=== PATIENT | female | born 1990 | race Caucasian/White ===

== ENCOUNTER 2017-09-03 12:36 | Emergency (ER) | payer OTHER ==
[~2017-09-03] VITALS: Ht 162.6 cm; Wt 75.8 kg
[~2017-09-03 12:36] MED LIST: ENDOCET 5-3251 EACH PO; FLEXERIL5 MG PO; FLONASE16 G1 BOTH NARES; IBUPROFEN800 MG PO; KEFLEX500 MG PO; LYRICA200 MG PO; MACROBID100 MG PO; MOTRIN800 MG PO; MUCUS ER600 MG PO; Motrin PO; NAPROSYN500 MG PO; NAPROXEN SODIU550 MG PO; NOHOMEMEDS; NORCO 5/3251 TABLET PO; Natalcare Rx,Pramile PO; PROMETHAZINE HC25 M1 PO; PROPRANOLOL HCL60 MG PO; Percocet 5/325,Endoc PO; TESSALON PERLE100 MG PO; TYLENOL EXTRA500 MG PO
[2017-09-03 13:44] LABS: APPEARANCE CLEAR ((CLEAR)); BILIRUBIN NEGATIVE; BLOOD MODERATE; COLOR YELLOW ((YELLOW)); GLUCOSE (STRIP) NEGATIVE; KETONES NEGATIVE; LEUKOCYTES NEGATIVE; NITRITE NEGATIVE; PROTEIN (STRIP) NEGATIVE; SPECIFIC GRAVITY 1.024 (1.000-1.030); UROBILINOGEN 0.2 MG/DL (0.2-1.0)
[2017-09-03 13:49] LABS: BACTERIA NONE SEEN /HPF; EPITHELIAL CELLS RARE /HPF; MUCUS TRACE /LPF; RED BLOOD CELLS 0-5 /HPF (0-5); UCUL ADDED? NO; WHITE BLOOD CELLS 0-5 /HPF (0-5)
[2017-09-03 13:52] LABS: AMPHETAMINE NEGATIVE (500 ng/mL); BARBITURATES NEGATIVE (200 ng/mL); BENZODIAZEPINES NEGATIVE (150 ng/mL); BUPRENORPHINE NEGATIVE (10 ng/mL); COCAINE NEGATIVE (150 ng/mL); METHADONE NEGATIVE (200 ng/mL); METHAMPHETAMINE NEGATIVE (500 ng/mL); OPIATES (MORPHINE) NEGATIVE (100 ng/mL); OXYCODONE NEGATIVE (100 ng/mL); PHENCYCLIDINE NEGATIVE (25 ng/mL); PROPOXYPHENE NEGATIVE (300 ng/mL); THC CANNABINOIDS NEGATIVE (50 ng/mL); TRICYCLIC ANTIDEPRESSANTS NEGATIVE (300 ng/mL)
[2017-09-03] MEDS ORDERED: FLEXERIL10 MG PO (14:17)
[2017-09-03] MEDS ORDERED: MOTRIN800 MG PO (14:17)
[2017-09-03 14:28] VITALS: BP 121/70
== END 2017-09-03 14:30 | disposition home or self-care (01) ==
LOC: EME 12:36
PROVIDERS: Nurse Practitioner Family
DX: R10.9 Unspecified abdominal pain (principal); R31.9 Hematuria, unspecified; Z88.5 Allergy status to narcotic agent
CPT/HCPCS: 72100; 81003; 99281; 99285